=== PATIENT | male | born 1965 | race Caucasian/White ===

== ENCOUNTER → 2019-12-18 10:43 | Outpatient (CLI) | payer OTHER, SELFPAY ==
--- NOTE | 2019-12-18 | DI.MRI.S_ITS ---
PROCEDURE: MR ANKLE RT WO CON INDICATIONS: Pain in right ankle and joints of right foot TECHNIQUE: Noncontrast sagittal T1 spin echo and T2 fast spin echo with fat saturation, axial proton density fast spin echo and T2 fast spin echo with fat saturation, coronal T1 spin echo and T2 fast spin echo with fat saturation through the ankle/hindfoot. COMPARISON: None. FINDINGS: Image quality: Excellent. Bones and joints: No bone marrow contusions or fractures. No hindfoot coalitions. No osteochondral injuries of the talar dome. No pathologic joint effusions. Medial structures: There is small amount of fluid surrounding the posterior tibialis tendon consistent with tenosynovitis. The posterior tibialis, flexor digitorum longus, and flexor hallucis longus tendons are intact. The posterior tibial neurovascular bundle appears normal within the tarsal tunnel, without extrinsic mass effect. The deep layer (anterior and posterior tibiotalar ligaments) and superficial layer (tibionavicular, tibiospring, and tibiocalcaneal ligaments) of the deltoid ligament appear normal. The spring ligament components (superomedial calcaneonavicular, medioplantar oblique calcaneonavicular, and inferoplantar longitudinal ligaments) are intact. Lateral structures: There is longitudinal split tear of the peroneus brevis tendon. The peroneus longus tendon demonstrates normal location and morphology. The anterior talofibular, calcaneofibular, and posterior talofibular ligaments appear intact. More superiorly, the anterior and posterior tibiofibular ligaments appear intact, as is the intermalleolar ligament. The tibiofibular syndesmosis is normal in width at 2 mm or less. Adjacent bony peroneal tubercle and retrotrochlear prominence are normal in size. The sinus tarsi demonstrates normal fatty signal, without edema, fibrosis, or cyst formation. Visualized sinus tarsi components (cervical ligament, interosseous talocalcaneal ligament, roots of the inferior extensor retinaculum) appear normal. The calcaneonavicular and calcaneocuboid components of the bifurcate ligament appear intact. The dorsal calcaneocuboid ligament appears intact. Anterior structures: The tibialis anterior, extensor hallucis longus, and extensor digitorum longus tendons appear intact. The dorsal talonavicular ligament appears intact. Posterior and plantar structures: Achilles tendon is thickened and demonstrates abnormal signal consistent with tendinitis. Medial and lateral bands of the plantar fascia are of normal thickness. No abductor digiti quinti muscle atrophy to suggest Wang neuropathy. IMPRESSION: 1. Achilles tendinitis. 2. Longitudinal split tear of the peroneus brevis tendon. 3. Tenosynovitis of the posterior tibialis tendon. Dictated by: Christina Tatum M.D. on 12/21/2019 at 8:57 Approved by: Christina Tatum M.D. on 12/21/2019 at 18:31
== END ==
PROVIDERS: PCP Family Medicine; Referring Provider Podiatrist; Visit Provider Podiatrist
DX: M76.61 Achilles tendinitis, right leg (principal); S96.811A Strain of other specified muscles and tendons at ankle and foot level, right foot, initial encounter; M65.871 Other synovitis and tenosynovitis, right ankle and foot; M25.571 Pain in right ankle and joints of right foot; R26.2 Difficulty in walking, not elsewhere classified
CPT/HCPCS: 73721

== ENCOUNTER 2024-09-04 09:53 | Emergency (ER) | payer OTHER, SELFPAY ==
[2024-09-04 10:01] VITALS: BP 182/91; PULSE 74; RESP 18; TEMP 36.5; O2SAT 98; BMI 30.8
--- NOTE | 2024-09-04 11:00 | ED.UPPEXIN ---
HPI - Extremity Injury (Upper) <Malinda Chan PA-C - Last Filed: 09/04/24 12:52> General Chief Complaint: Extremity Injury, Upper Stated Complaint: pop/tear in upper lt arm Time Seen by Provider: 09/04/24 10:12 Source: patient Mode of arrival: Ambulatory History of Present Illness HPI narrative: Mr. Chin is a very pleasant 59-year-old male with a past medical history of hypertension, hyperlipidemia, type 2 diabetes on metformin who presents to the emergency department with his for left arm pain/injury that occurred this morning. Patient was attempting to stop a young horse using his left arm out in front of the neck with a horse went straight through the arm he had immediate pain of the left bicep, felt a pop, and noticed a deformity in the left bicep muscle. Pain with elbow flexion. He took 400 mg of ibuprofen this morning. Describes pain as primarily on the distal biceps tendon region/elbow, but the whole arm feels ?off?. No focal pain of the hand, wrist, forearm, shoulder, collarbone. There was no fall or head injury. Related Data Allergies Allergy/AdvReac Type Severity Reaction Status Date / Time No Known Drug Allergies Allergy Verified 09/04/24 10:05 Review of Systems <Malinda Chan PA-C - Last Filed: 09/04/24 12:52> Review of Systems ROS Unobtainable: All systems reviewed & are unremarkable except as noted in HPI and below Patient History <Malinda Chan PA-C - Last Filed: 09/04/24 12:52> Social History Smoking Status: Never smoker Smoking Status: Never smoker Exam <Malinda Chan PA-C - Last Filed: 09/04/24 12:52> Narrative Exam Narrative: GENERAL: 59 year old patient appears stated age. Well-developed patient, in no acute distress. HEAD: Atraumatic. Normocephalic. NECK: Trachea midline. Cervical ROM intact. CARDIOVASCULAR: Regular rate and rhythm. RESPIRATORY: ?Nonlabored respirations. ?Speaking in clear, full sentences. ?Clear to auscultation. EXTREMITIES: Deformity of left biceps muscle, tenderness to palpation of left antecubital fossa and difficulty palpating the distal biceps tendon in the antecubital fossa. Pain with left elbow flexion however patient does have some strength intact. Bilateral hands are neurovascularly intact with brisk capillary refill of the fingers and strong radial pulse. No pain with passive or active abduction of the left shoulder. BACK: Nontender NEURO: AOx3. ?Clear speech. ?Moves all 4 extremities appropriately. SKIN: No rash or erythema of visible areas Initial Vital Signs Initial Vital Signs: Vital Signs Temperature 97.7 F 09/04/24 10:01 Pulse Rate 74 09/04/24 10:01 Respiratory Rate 18 09/04/24 10:01 Blood Pressure 182/91 H 09/04/24 10:01 Pulse Oximetry 98 09/04/24 10:01 Oxygen Delivery Method Room Air 09/04/24 10:01 <Roverto Butler MD - Last Filed: 09/04/24 20:20> Initial Vital Signs Initial Vital Signs: Vital Signs Temperature 97.7 F 09/04/24 10:01 Pulse Rate 74 09/04/24 10:01 Respiratory Rate 18 09/04/24 10:01 Blood Pressure 182/91 H 09/04/24 10:01 Pulse Oximetry 98 09/04/24 10:01 Oxygen Delivery Method Room Air 09/04/24 10:01 Course <Malinda Chan PA-C - Last Filed: 09/04/24 12:52> Orders Ordered: Discontinued Medications Acetaminophen (Acetaminophen 325 Mg Tablet) 650 mg PO NOW ONE Stop: 09/04/24 11:13 Last Admin: 09/04/24 11:18 Dose: 650 mg Documented By: Ibuprofen (Ibuprofen 400 Mg Tablet) 400 mg PO NOW ONE Stop: 09/04/24 11:13 Last Admin: 09/04/24 11:17 Dose: 400 mg Documented By: Vital Signs Vital signs: Vital Signs - 8 hr 09/04/24 12:45 Pulse Rate 85 Respiratory Rate 19 Blood Pressure 145/78 H Pulse Oximetry 98 Oxygen Delivery Method Room Air <Roverto Butler MD - Last Filed: 09/04/24 20:20> Orders Ordered: Discontinued Medications Acetaminophen (Acetaminophen 325 Mg Tablet) 650 mg PO NOW ONE Stop: 09/04/24 11:13 Last Admin: 09/04/24 11:18 Dose: 650 mg Documented By: Ibuprofen (Ibuprofen 400 Mg Tablet) 400 mg PO NOW ONE Stop: 09/04/24 11:13 Last Admin: 09/04/24 11:17 Dose: 400 mg Documented By: Vital Signs Vital signs: Vital Signs - 8 hr 09/04/24 12:45 Pulse Rate 85 Respiratory Rate 19 Blood Pressure 145/78 H Pulse Oximetry 98 Oxygen Delivery Method Room Air MDM - Extremity Injury (Upper) <Malinda Chan PA-C - Last Filed: 09/04/24 12:52> Medical Records Medical records narrative: None available for review MDM Narrative Medical decision making narrative: 59-year-old male with a past medical history of hypertension, hyperlipidemia, type 2 diabetes on metformin who presents to the emergency department with his for left arm pain/injury that occurred this morning. Differential diagnosis includes but isn't limited to distal left biceps tendon rupture, avulsion fracture, elbow fracture, shoulder fracture, dislocation, sprain, strain, etc. etc. On exam patient is in no acute distress, nontoxic appearing, bilateral upper extremities neurovascularly intact. He has deformity of the left biceps muscle and pain in the left antecubital fossa and difficulty palpating biceps tendon, concerning for distal biceps tendon rupture. We will proceed with x-ray of shoulder and elbow to rule out avulsion fracture. Left elbow x-ray reveals no acute fractures or dislocations. Distal biceps muscle may be high riding. Left shoulder x-ray reveals no acute osseous abnormalities. There is [id number] acromioclavicular joint osteoarthritis. Printed imaging results are discussed with the patient and his . Consulted orthopedic surgery on-call Dr. Amaro, who is agreeable to sling and orthopedic follow up outpatient, recommends patient follows up with his colleague Dr. Kingston or Dr. Ruiz. Recommended sling, supportive care, range of motion of shoulder to prevent frozen shoulder, rice, NSAIDs. Patient his verbalized understanding of all information agreement with the plan. He is stable for discharge home. Discharge Plan Departure Patient Disposition: Home Clinical Impression: Biceps tendon rupture, traumatic Qualifiers: Encounter type: initial encounter Laterality: left Qualified Code(s): S46.212A - Strain of muscle, fascia and tendon of other parts of biceps, left arm, initial encounter Instructions: DI for Arm Pain Activity Restrictions/Additional Instructions: Dear Mr. Chin, Thank you for coming to the emergency department. Today you were evaluated for left arm injury. We will obtain x-rays of the left elbow and shoulder which not reveal any fractures. I am concerned that you have a partial or full distal biceps tendon rupture. Please wear the sling and follow up with Orthopedic surgery for further management. Please take Ibuprofen (Motrin/Advil) or Acetaminophen (Tylenol) for pain. These are available over the counter. You may take Ibuprofen 600 mg every 8 hours with food for pain. You may also take Acetaminophen 650 mg every 4-6 hours for pain. Do not exceed 3000 mg of Tylenol a day as this can cause liver damage. Do not drink alcohol with either of these medications. Please use RICE therapy for your pain in addition to ibuprofen/acetaminophen. Rest the painful area. Ice the area of pain/swelling for at least 15 minutes, 4x a day. Compress the area of swelling using a brace, wrap, or splint if applied. Elevate the painful or swollen extremity by supporting it above the level of the heart with pillows when sitting or laying. Please follow up with your primary care doctor within the next 2-3 days for ER follow-up. (If you do not have a PCP you can call [phone]. ?to schedule an appointment with an [facility] Primary Care Provider) IF YOU DEVELOP ANY NEW OR WORSENING SYMPTOMS, RETURN TO THE ER! Please read the attached instructions, they highlight more specific treatments and interventions for you at home. Thank you for letting me participate in your care, Malinda Chan PA-C Referrals: Murray Kingston MD [Physician] - (concern distal L biceps tendon rupture, spoke with Dr. Amaro ) Kate Gallardo DO [Primary Care Provider] - Stand Alone Forms: Patient Portal/API/Survey ED Sign-out <Roverto Butler MD - Last Filed: 09/04/24 20:20> Cosign ED Attending Harriet Attestation: I was immediately available in the department for consultation. This documentation has been reviewed and I agree with assessment and plan. Supervised by Roverto Butler MD
--- NOTE | 2024-09-04 11:12 | DI.RAD.S_ITS ---
PROCEDURE: XR SHOULDER LT MIN 2V INDICATIONS: concern distal biceps tendon rupture TECHNIQUE: 3 views of the shoulder were acquired. COMPARISON: None. FINDINGS: Bones: No fractures or dislocations. No suspicious bony lesions. Visualized ribs appear intact. [id number] acromioclavicular joint osteoarthrosis. Soft tissues: No suspicious soft tissue calcifications. IMPRESSION: No acute osseous abnormality. If there is continued clinical concern or persistent symptoms, repeat radiographs or cross-sectional imaging (e.g. CT, MRI) may be helpful for further evaluation. Approved by: Darci Trujillo M.D. on 09/04/2024 at 10:51
--- NOTE | 2024-09-04 11:12 | DI.RAD.S_ITS ---
PROCEDURE: XR ELBOW LT MIN 3V INDICATIONS: concern distal biceps tendon rupture TECHNIQUE: 3 views of the elbow were acquired. COMPARISON: None. FINDINGS: Bones: No acute fractures or dislocations. No suspicious bony lesions. Soft tissues: No elbow joint effusion. No suspicious soft tissue calcifications. Distal biceps muscle may be high riding. IMPRESSION: No acute osseous abnormality. If symptoms persist or if there is continued clinical concern, cross-sectional imaging such as MRI may be helpful for further evaluation. Approved by: Darci Trujillo M.D. on 09/04/2024 at 11:09
[2024-09-04] MEDS: IBUPROFEN 400 MG TABLET PO (11:17)
[2024-09-04] MEDS: ACETAMINOPHEN 325 MG TABLET 650 MG PO (11:18)
[2024-09-04 12:45] VITALS: BP 145/78; PULSE 85; RESP 19; O2SAT 98
== END 2024-09-04 13:01 | disposition home or self-care (01) ==
PROVIDERS: Emergency Provider Physician Assistant; PCP Family Medicine
DX: S46.212A Strain of muscle, fascia and tendon of other parts of biceps, left arm, initial encounter (principal); X58.XXXA Exposure to other specified factors, initial encounter
CPT/HCPCS: 73030; 73080; 99283

== ENCOUNTER → 2024-09-09 19:39 | Outpatient (CLI) | payer OTHER, SELFPAY ==
--- NOTE | 2024-09-09 19:40 | DI.MRI.S_ITS ---
PROCEDURE: MR ELBOW LT W CON INDICATIONS: surgical planning TECHNIQUE: Noncontrast coronal proton density fast spin echo and T2 fast spin echo with fat saturation, axial and sagittal T1 spin echo and T2 fast spin echo with fat saturation through the elbow. COMPARISON: [facility], CR, XR ELBOW LT MIN 3V, 09/04/2024, 11:18. FINDINGS: Image quality: Excellent. Lateral structures: The lateral ulnar collateral ligament and radial collateral ligament both appear intact. The overlying common extensor tendon also appears normal. Medial structures: The ulnar collateral ligament appears intact. The overlying common flexor tendon demonstrates mild tendinosis. The ulnar nerve appears normal in size and signal within the cubital tunnel. Anterior structures: There is complete tearing of the distal biceps tendon from its insertion onto the radial tuberosity with proximal tendon retraction measuring up to 2.8 cm, below the level of the lacertus fibrosis. There is soft tissue edema and hemorrhage surrounding the torn tendon stump. Mild edema in the distal brachialis muscle may be reactive or secondary to a low-grade strain. The median and radial neurovascular bundles appear normal; no focal muscle atrophy to suggest nerve impingement. Posterior structures: The conjoint triceps tendon from the long and lateral heads appears intact. The medial head of the triceps tendon also appears normal, with direct muscle insertion onto the olecranon. No olecranon bursal fluid. Bone and cartilage: No bone marrow contusions or fractures. No osteochondral injuries. IMPRESSION: 1. Complete tearing of the distal biceps tendon from its distal insertion with mild proximal tendon retraction measuring approximately 2.8 cm. 2. Edema within the brachialis muscle may be reactive or secondary to a low-grade strain. 3. Mild common flexor tendinosis. Approved by: Darci Trujillo M.D. on 09/10/2024 at 13:15
== END ==
PROVIDERS: PCP Family Medicine; Referring Provider Orthopaedic Surgery; Visit Provider Orthopaedic Surgery
DX: S46.219A Strain of muscle, fascia and tendon of other parts of biceps, unspecified arm, initial encounter (principal); S46.212A Strain of muscle, fascia and tendon of other parts of biceps, left arm, initial encounter; M25.422 Effusion, left elbow
CPT/HCPCS: 73221

== ENCOUNTER 2024-09-13 08:05 | Day surgery (SDC) | payer OTHER, SELFPAY ==
[2024-09-09 14:56] VITALS: BMI 31.2
[2024-09-13] VITALS (11 sets, daily range): BP systolic 126–148; BP diastolic 75–90; PULSE 94–105; RESP 12–16; TEMP 36.2–36.7; O2SAT 94–99; BMI 31.2
[2024-09-13] MEDS: ACETAMINOPHEN 325 MG TABLET 975 MG PO (09:02)
[2024-09-13] MEDS: LACTATED RINGERS 1,000 ML 42 ML IV (09:03)
[2024-09-13] MEDS: INSULIN REGULAR 100 UNIT/ML 3 ML VIAL IV (09:43)
--- NOTE | 2024-09-13 11:11 | PM.PREOP ---
Pre-operative Note Interval Note History & Physical reviewed/Exam performed by Physician: Yes Changes to H&P: No
[2024-09-13] MEDS: CEFAZOLIN 2 GM/100 ML PREMIX 100 ML IV (11:40)
--- NOTE | 2024-09-13 12:00 | SUR.OPER ---
Supine on padded OR bed, head on pillow, right arm secured on padded arm board at <90 degrees abduction, left arm resting on cushioned arm table, legs uncrossed, safety belt at thigh, tape over blanket over lower legs.
[2024-09-13] MEDS: BUPIVACAINE 0.25% (PF) VIAL 30 ML INJ (12:05)
--- NOTE | 2024-09-13 13:12 | PM.OP.1 ---
Operative Date/Time/Diagnoses Date of procedure: 09/13/24 Time of procedure: 13:13 Pre-op diagnosis: LEFT Distal Biceps Rupture Post-op diagnosis: same Procedure & Clinicians Procedure: LEFT Distal Biceps Tendon Repair Same procedure as scheduled: Yes Surgeon: Murray Kingston Airplane Pilot Supervisor: Eli Ruiz Click Yes if Unassisted: Yes Anesthesia Type: General Operative Notes Findings: Complete rupture of the left distal biceps tendon Closure Type: primary Estimated Blood Loss (mL): 10 Tourniquet time (min): 52 Procedure in detail: Laterality: Left Preoperative diagnosis: Distal biceps tendon rupture Procedure performed: Distal distal biceps tendon repair Postoperative diagnosis: Same Primary Surgeon: Murray Kingston MD Secondary Surgeon: DO Dr. Sara Velázquez was used throughout the entirety of the case. This operation could not have been safely performed (without compromising the technical results or length of the procedure) without the assistance of a skilled captain assistant. A captain assistant was medically necessary for room set up, patient positioning, draping, retraction, visualization, reduction, fixation and closure. They were essential for the success of the case. Anesthesia: General EBL: 10 ml Tourniquet: 52 minutes @ 250 mmHg Implants: Arthrex Fiberloop x1 and Arthrex Distal Biceps Button Indication For Surgery: Complete tear of the distal biceps tendon. There was an abnormal hook and reverse colin deformity. The risks, benefits, and alternatives were discussed. Risks include pain, bleeding, infection, damage to nearby structures and cartilage, lack of symptom relief, need for further surgery, DVT, PE, stroke, and . Written consent was obtained. Examination Under Anesthesia: biceps tendon stump is felt in the antecubital fossa Operative Findings: Full thickness biceps tendon tear with retraction. Procedure in Detail: The patient was met in the pre-operative hold area. Consent was verified and operative extremity was signed. Regional block was given by anesthesia. The patient then met with anesthesia and was brought back to the operating room. The patient was placed supine on the operating table. A general anesthetic was administered. The operative arm was prepped and draped in the usual sterile fashion. A timeout was performed per protocol. All were in agreement and we proceeded. The esmarch exsanguinated the limb and the tourniquet was elevated. A longitudinal incision was from the antecubital fossa extending along the medial border of brachioradialis. The forearm was supinated throughout the case and an [employer] was used exclusively lateral to the radius. LABCN was identified and protected throughout the case. Dissection was brought down and crossing veins/arteries were tied and ligated. The tuberosity was identified and the biceps tendon was found to be ruptured from the tuberosity. Xray confirmed the tuberosity and it was then prepared with an elevator, curved curette, and rongeur. The biceps tendon was then isolated and unhealthy tissue was dissected from the tendon (approximately 1cm). I then passed fiberloop with 5 passes starting at the musculotendious junction. The tendon was measured 8 mm. The forearm tissues were retracted with a junior medially and army-[employer] laterally taking care to protect nerves. Utilizing fluoroscopy I identified the location for our drill hole on the radial tuberosity. I ensured that my guidewire was aimed medially and distally to try to prevent injury to PIN. I then overdrilled the near cortex with a 8 mm reamer. We were then able to pass our biceps tendon button through the far cortex and flipped it and ensure that it was against the far cortex. We then sequentially pulled our sutures docking the biceps tendon within the drill hole. The tendon became tight with the elbow extended to 30 degrees. The tendon remained well reduced and the repair was strong. Irrigation was performed. The wound was closed with vicryl in the fat and dermal layers, with nylon in the skin. Local anesthetic was injected into the surgical site. A sterile dressing, splint and sling was applied. The patient was awakened and transitioned to the recovery room without issue. Postoperative Plan: Same day surgery discharge Sling and splint until follow up Sutures out at 2 weeks May work on passive range of motion Full ROM at 6 weeks No strenghtening until 12 weeks. Murray Kingston MD Complications: none Post-operative Condition: stable Disposition: PACU
[2024-09-13] MEDS: hydrOXYzine 50 MG/ML INJ 25 MG IM (13:26)
[2024-09-13] MEDS: OXYCODONE IR 5 MG TABLET PO ×2 (13:29→14:13)
[2024-09-13] MEDS: HYDROMORPHONE 1 MG INJ IV ×2 (13:31→13:56)
== END 2024-09-13 15:07 | disposition home or self-care (01) ==
PROVIDERS: PCP Family Medicine; Referring Provider Orthopaedic Surgery; Visit Provider Orthopaedic Surgery
PROC: (CPT 24341; principal; 2024-09-13 09:30)
DX: S46.122A Laceration of muscle, fascia and tendon of long head of biceps, left arm, initial encounter (principal); X50.1XXA Overexertion from prolonged static or awkward postures, initial encounter; Y93.89 Activity, other specified; I10 Essential (primary) hypertension; E11.9 Type 2 diabetes mellitus without complications; Z79.84 Long term (current) use of oral hypoglycemic drugs
CPT/HCPCS: 24342; 82962; J0690; J1100; J1171; J1885; J2250; J2405; J2704; J3010; J3410